=== PATIENT | female | born 1990 ===

== ENCOUNTER 2017-09-08 21:41 | Emergency (ER) | payer BC ==
--- NOTE | 2017-09-08 22:24 | PD ---
HPI Chief Complaint decr FM Date Seen: September 08, 2017 Time Seen: 22:21 Travel History International Travel<30 Days: No Contact w/Intl Traveler<30Days: No Known Affected Area: No History of Present Illness HPI Pt is a 27y/o G1 @ 39.4wks. She has PNC with Dr. Alvarenga. She presents this evening with c/o decr FM. She reports having heartburn and emesis overnight and today baby has only had 1-2 movements every hour. She has rested most of the day. Reports adequate hydration and PO intake. States she has felt movement since being here in triage. No ctx, LOF, or VB. Weeks Gestation: 39 Para: 0 : 1 History Past Medical History Medical History: Denies Significant Hx Obstetric History Obstetric History 1. current Past Surgical History Surgical History: No Previous Surgery Family History Family History: Negative Social History Alcohol Use: No Tobacco Use: No Substance Abuse: No Allergies-Medications (Allergen,Severity, Reaction): Coded Allergies: No Known Allergies (Verified Allergy, Unknown, 09/08/17) Narrative Medication PNVs Review of Systems Except as stated in HPI: all other systems reviewed are Neg Physical Exam Narrative General: well developed, well nourished, no acute distress HEENT: normocephalic atraumatic, extraocular movements intact, neck supple Abdomen: soft, gravid, nontender, nondistended Uterus: fundus term, soft Extremities: full range of motion Skin: normal coloration, no rashes, no suspicious skin lesions noted Neurologic: cranial nerves 2-12 grossly intact, normal muscle tone, normal gait Psychiatric: normal mood and affect, appropriate FHTs: 135, +accels, no decels, moderate variability, reactive [place]: quiet Cvx: deferred Data Data Vital Signs Reviewed: Yes Orders Orders Vital Signs (Adult) .ON ADMISSION (09/08/17 22:19) ^ Labor Status (09/08/17 22:19) ^ Non Stress Test (09/08/17 22:19) Ed Discharge Order (09/08/17 22:19) MDM Plan 27y/o G1 @ 39.4wks with decr . -- NST reactive -- precautions reviewed Dispo: stable for d/c home, has f/u with Dr. Alvarenga on Saturday in clinic Diagnosis Diagnosis: Primary Impression: 39 weeks gestation of Additional Impression: Decreased movement Harvey Barreto MD September 08, 2017 22:24
== END 2017-09-08 22:30 | disposition home or self-care (01) ==
LOC: HOBED 21:41
DX: O36.8130 Decreased fetal movements, third trimester, not applicable or unspecified (principal); Z3A.39 39 weeks gestation of pregnancy
CPT/HCPCS: 99282

== ENCOUNTER 2017-09-19 18:00 | Inpatient (IN) | payer BC ==
[~2017-09-19] VITALS: Ht 175.3 cm; Wt 98.0 kg
[2017-09-19] MEDS ORDERED: OXYTOCIN 30 UNITS 500ML PREMIX IV ONE (19:00)
[2017-09-19] MEDS ORDERED: LIDOCAINE HCL 1% 50 ML VIAL INFIL PRN (19:00)
[2017-09-19] MEDS ORDERED: LACTATED RINGER'S 1000 ML INJ 1,000 ML IV SCH (19:00)
[2017-09-19] MEDS ORDERED: MINERAL OIL 10 ML VIAL TOPICAL PRN (19:00)
[2017-09-19] MEDS ORDERED: DINOPROSTONE 10 MG INSERT-LEAVE FOR 12 HOURS VAGINAL ONE (19:00)
[2017-09-19] MEDS ORDERED: SODIUM CHLORIDE 0.9% FLUSH 10 ML FLUSH IV FLUSH PRN (19:00)
[2017-09-19] MEDS ORDERED: LACTATED RINGER'S 1000 ML BOLUS IV PRN (19:15)
[2017-09-19] MEDS ORDERED: CITRIC ACID-SODIUM CITRATE LIQ 30 ML UDC PO SCH (19:15)
[2017-09-19] MEDS ORDERED: NS 1000 ML IV PRN (19:15)
[2017-09-19] MEDS ORDERED: LIDOCAINE HCL 1% 50 ML VIAL I-DERMAL PRN (19:15)
[2017-09-19] MEDS ORDERED: NS 500 ML BOLUS IV PRN (19:15)
[2017-09-19 19:21] LABS: AUTOMATED NEUTROPHIL # 9.3 TH/MM3 (1.8-7.7); BASOPHIL % 0.1 % (0.0-2.0); EOSINOPHIL # 0.2 TH/MM3 (0-0.4); EOSINOPHIL % 1.4 % (0.0-4.0); HEMATOCRIT 37.5 % (35.0-46.0); HEMOGLOBIN 12.3 GM/DL (11.6-15.3); LYMPH % 16.5 % (9.0-44.0); LYMPHOCYTE # 2.1 TH/MM3 (1.0-4.8); MEAN CELL VOLUME 91.1 FL (80.0-100.0); MEAN CORPUSCULAR HGB CONC 32.9 % (32.0-36.0); MEAN PLATELET VOLUME 8.5 FL (7.0-11.0); MONO % 8.8 % (0.0-8.0); MONOCYTE # 1.1 TH/MM3 (0-0.9); NEUT % 73.2 % (16.0-70.0); PLATELET COUNT 178 TH/MM3 (150-450); RED BLOOD COUNT 4.11 MIL/MM3 (4.00-5.30); RED CELL DISTRIBUTION WIDTH 14.6 % (11.6-17.2); WHITE BLOOD COUNT 12.7 TH/MM3 (4.0-11.0)
[2017-09-19 19:23] LABS: BACTERIA, URINE RARE /hpf; BILIRUBIN, URINE NEG (NEG); BLOOD, URINE NEG (NEG); GLUCOSE,URINE NEG (NEG); KETONE, URINE 40 mg/dL (NEG); MUCUS URINE FEW /lpf (OCC); NITRITE,URINE NEG (NEG); PH, URINE 6.5 (5.0-8.5); SQUAMOUS EPITHELIAL CELL URINE 1 /hpf (0-5); URINE COLOR YELLOW (YELLW/STRAW); URINE LEUKOCYTE ESTERASE NEG (NEG)
[2017-09-19] MEDS ORDERED: PREN1TAB30 (19:45)
[2017-09-19] MEDS ORDERED: ZANT150T2 PO (19:45)
[2017-09-19] MEDS ORDERED: TUMS500C CHEW (19:45)
[2017-09-19] MEDS: LACTATED RINGER'S 1000 ML IV SCH (20:18)
[2017-09-20] MEDS ORDERED: FAMOTIDINE 20 MG TAB PO ONE (01:30)
--- NOTE | 2017-09-20 06:29 | HHI.HP ---
HPI Chief Complaint postdates induction, 41w1d on 09/19/17 Date Seen: Sep 19, 2017 Travel History International Travel<30 Days: No Contact w/Intl Traveler<30Days: No Known Affected Area: No History of Present Illness HPI 27 yo G1 with EDC 09/11/17 presents for postdates labor induction. C/o irregular contractions, no VB or LOF, good FM. Rh negative, had Rhogam at 28 wks. Pain 1/10 mild pressure pelvis. Weeks Gestation: 41 Para: 0 : 1 Miscarriage: 0 : 0 History Past Medical History Narrative Medical Rh negative Obstetric History Obstetric History G1 - current Past Surgical History Surgical History: No Previous Surgery Family History Family History: Negative Social History Alcohol Use: No Tobacco Use: No Substance Abuse: No Allergies-Medications (Allergen,Severity, Reaction): Coded Allergies: No Known Allergies (Verified Allergy, Unknown, 09/08/17) Home Meds Reported Medications Calcium Carbonate (Antacid) (Tums) 500 Mg Chew, 500 MG CHEW Y for HEARTBURN, TAB 0 Refills 09/19/17 Vit W/ Ferrous Fumara ( Vitamin 27-0.8 mg) 27 Mg Iron-800 Mcg Tab, DAILY 09/19/17 Ranitidine (Zantac) 150 Mg Tab, 150 MG PO DAILY for Reduce Stomach Acid, #30 TAB 0 Refills 09/19/17 Review of Systems General / Constitutional: Weight Gain, No: Fever, Chills, Other Eyes: No: Diploplia, Blurred Vision, Visual changes, Pain, Photophobia HENT: No: Headaches, Vertigo, Lightheadedness Cardiovascular: No: Irregular Rhythm, Chest Pain or Discomfort, Palpitations, Tachycardia, Syncope, Varicosities, Edema, Cyanosis Respiratory: No: Cough, Short of Breath, Other Gastrointestinal: No: Nausea, Vomiting, Diarrhea Genitourinary: Pelvic Pain (pressure), No: Decreased Urinary Output, Oliguria Musculoskeletal: No: Limited ROM, Weakness, Cramping, Edema, Pain Skin: No Rash, No Itching, No Dryness, No Lumps, No Change in Pigmentation, No Change in Nails, No Alopecia, No Lesions Neurologic: No: Weakness, Dizziness, Syncope, Focal Abnormalities, Coordination Problem, Headache, Slurred Speech, Seizures Psychiatric: No: Depression, Suicidal Ideations, Homicidal Ideation Endocrine: No: Heat Intolerance, Cold Intolerance, Polydipsia, Polyuria, Other Physical Exam Narrative GENERAL: Well-nourished, well-developed patient. SKIN: Warm and dry. HEAD: Normocephalic and atraumatic. EYES: No scleral icterus. No injection or drainage. ENT: No nasal drainage noted. Mucous membranes pink. Airway patent. NECK: Supple, trachea midline. No JVD. CARDIOVASCULAR: Regular rate and rhythm without murmurs, gallops, or rubs. RESPIRATORY: Breath sounds equal bilaterally. No accessory muscle use. BREASTS: deferred. ABDOMEN/GI: Abdomen soft, non-tender, bowel sounds present, no rebound, no guarding Gravid to [41] weeks size Fundal Height: [41] GENITOURINARY: see RN note on amilcar FHT's: Category:I EXTREMITIES: No cyanosis or edema. BACK: Nontender without obvious deformity. No CVA tenderness. NEUROLOGICAL: Awake and alert. Motor and sensory grossly within normal limits. Five out of 5 muscle strength in all muscle groups. Normal speech. Caprini VTE Risk Assessment Caprini VTE Risk Assessment: No/Low Risk (score <= 1) VTE Pharm Contraindication: Epidural catheter Caprini Risk Assessment Model Point Value = 1 Point Value = 2 Point Value = 3 Point Value = 5 Age 41-60 Minor surgery BMI > 25 kg/m2 Swollen legs Varicose veins or History of unexplained or recurrent spontaneous Oral contraceptives or hormone replacement Sepsis (< 1 month) Serious lung disease, including pneumonia (< 1 month) Abnormal pulmonary function Acute myocardial infarction Congestive heart failure (< 1 month) History of inflammatory bowel disease Medical patient at bed rest Age 61-74 Arthroscopic surgery Major open surgery (> 45 min) Laparoscopic surgery (> 45 min) Malignancy Confined to bed (> 72 hours) Immobilizing plaster cast Central venous access Age >= 75 History of VTE Family history of VTE Factor V Leiden Prothrombin [id number] Lupus anticoagulant Anticardiolipin antibodies Elevated serum homocysteine Heparin-induced thrombocytopenia Other congenital or acquired thrombophilia Stroke (< 1 month) Elective arthroplasty Hip, pelvis, or leg fracture Acute spinal cord injury (< 1 month) Prophylaxis Regimen Total Risk Factor Score Risk Level Prophylaxis Regimen 0-1 Low Early ambulation 2 Moderate Order ONE of the following: *Sequential Compression Device (SCD) *Heparin 5000 units SQ BID 3-4 Higher Order ONE of the following medications: *Heparin 5000 units SQ TID *Enoxaparin/Lovenox 40 mg SQ daily (WT < 150 kg, CrCl > 30 mL/min) *Enoxaparin/Lovenox 30 mg SQ daily (WT < 150 kg, CrCl > 10-29 mL/min) *Enoxaparin/Lovenox 30 mg SQ BID (WT < 150 kg, CrCl > 30 mL/min) AND/OR *Sequential Compression Device (SCD) 5 or more Highest Order ONE of the following medications: *Heparin 5000 units SQ TID (Preferred with Epidurals) *Enoxaparin/Lovenox 40 mg SQ daily (WT < 150 kg, CrCl > 30 mL/min) *Enoxaparin/Lovenox 30 mg SQ daily (WT < 150 kg, CrCl > 10-29 mL/min) *Enoxaparin/Lovenox 30 mg SQ BID (WT < 150 kg, CrCl > 30 mL/min) AND *Sequential Compression Device (SCD) Data Data Vital Signs Reviewed: Yes Orders Orders Physician Name Changes (09/19/17 ) Admit To Inpatient (09/19/17 ) Code Status (09/19/17 18:43) Vital Signs (Adult) .Per protocol (09/19/17 18:43) Heart (09/19/17 18:43) Amnioinfusion (09/19/17 18:43) Urinary Catheter Management .ONCE (09/19/17 18:43) Complete Blood Count With Diff (09/19/17 18:43) Hold Clot (09/19/17 18:43) Abo/Rh Blood Type (09/19/17 18:43) Urinalysis - C+S If Indicated (09/19/17 18:43) Ob/Psych Drug Screen, Urine (09/19/17 18:43) Resp Oxygen Non Rebreathe Mask (09/19/17 ) ^ Epidural / Intrathecal Infus (09/19/17 18:43) Admit To Inpatient (09/19/17 ) ^ Labor Induction (09/19/17 18:45) ^ Vaginal Insert (09/19/17 18:45) ^ Vaginal Lavage (09/19/17 18:45) Heart (09/19/17 18:45) Dinoprostone Vag Insert (Cervidil Vag In (09/19/17 19:00) Lactated Ringer's 1000 Ml Inj (Lr 1000 M (09/19/17 19:00) Sodium Chloride 0.9% Flush (Ns Flush) (09/19/17 19:00) Lactated Ringer's 1000 Ml Inj (Lr 1000 M (09/19/17 19:15) Lactated Ringer's 1000 Ml Inj (Lr 1000 M (09/19/17 19:15) Sodium Chlor 0.9% 1000 Ml Inj (Ns 1000 M (09/19/17 19:15) Lidocaine 1% Inj (50 Ml) (Xylocaine 1% I (09/19/17 19:15) Citric Acid-Sodium Citrate Liq (Bicitra (09/19/17 19:15) Fentanyl Inj (Fentanyl Inj) (09/19/17 19:00) Fentanyl Inj (Fentanyl Inj) (09/19/17 19:00) Sodium Chlorid 0.9% 500 Ml Inj (Ns 500 M (09/19/17 19:15) Oxytocin 30 Units-500ml Premix (Pitocin (09/19/17 19:00) Lidocaine 1% Inj (50 Ml) (Xylocaine 1% I (09/19/17 19:00) Light Mineral Oil (Muri-Lube Oil) (09/19/17 19:00) Diet Regular Basic (09/19/17 Dinner) Admit To Inpatient (09/19/17 ) Vital Signs (Adult) .Per protocol (09/19/17 20:02) Activity Oob Ad Nayely (09/19/17 20:02) Heart (09/19/17 20:02) Amnioinfusion (09/19/17 20:02) Urinary Catheter Management .ONCE (09/19/17 20:02) Resp Oxygen Non Rebreathe Mask (09/19/17 ) ^ Epidural / Intrathecal Infus (09/19/17 20:02) Famotidine (Pepcid) (09/20/17 01:30) Group B Strep: Negative Labs Laboratory Tests Test 09/19/17 18:20 White Blood Count 12.7 Red Blood Count 4.11 Hemoglobin 12.3 Hematocrit 37.5 Mean Corpuscular Volume 91.1 Mean Corpuscular Hemoglobin 30.0 Mean Corpuscular Hemoglobin Concent 32.9 Red Cell Distribution Width 14.6 Platelet Count 178 Mean Platelet Volume 8.5 Neutrophils (%) (Auto) 73.2 Lymphocytes (%) (Auto) 16.5 Monocytes (%) (Auto) 8.8 Eosinophils (%) (Auto) 1.4 Basophils (%) (Auto) 0.1 Neutrophils # (Auto) 9.3 Lymphocytes # (Auto) 2.1 Monocytes # (Auto) 1.1 Eosinophils # (Auto) 0.2 Basophils # (Auto) 0.0 CBC Comment DIFF FINAL Differential Comment Urine Color YELLOW Urine Turbidity CLEAR Urine pH 6.5 Urine Specific [place] 1.019 Urine Protein TRACE Urine Glucose (UA) NEG Urine Ketones 40 Urine Occult Blood NEG Urine Nitrite NEG Urine Bilirubin NEG Urine Urobilinogen LESS THAN 2.0 Urine Leukocyte Esterase NEG Urine RBC LESS THAN 1 Urine WBC LESS THAN 1 Urine Squamous Epithelial Cells 1 Urine Bacteria RARE Urine Mucus FEW Microscopic Urinalysis Comment CULT NOT INDICATED Urine Opiates Screen NEG Urine Barbiturates Screen NEG Urine Amphetamines Screen NEG Urine Benzodiazepines Screen NEG Urine Cocaine Screen NEG Urine Cannabinoids Screen NEG Assessment/Plan Problem List: (1) Post term at 41 weeks gestation ICD Codes: O48.0 - Post-term ; Z3A.41 - 41 weeks gestation of Status: Acute Assessment and Plan 27 yo G1 with EDC 09/11/17 admit on 09/19/17 at 41w1d for labor induction, postdates 1) IOL: for cervidil on admission if available; then re-evaluate in AM for add' tl measures as indicated; pt aware of risks including risks of distress/failure and possibility of need for ; consents to induction 2) GBS neg 3) status: vertex, male, EFW >8.5Hailey Catherine MD Sep 20, 2017 06:29
--- NOTE | 2017-09-20 08:02 | PD.LABORPN ---
Subjective Subjective mild cramping during night vaginal discomfort from cervidil with mild bloody show Objective Objective 3/50%/-3 posterior strip category one pelvis clinically adequate Weeks Gestation: 41 Gest Age Assessed Date: Sep 20, 2017 Gest Age Assessed Time: 08:01 Pt started active labor?: No Medical induction of labor?: No Artificial rupture of membrane: No Assessment/Plan Problem List: (1) Post term at 41 weeks gestation ICD Codes: O48.0 - Post-term ; Z3A.41 - 41 weeks gestation of Status: Acute Assessment and Plan shower, breakfast walk and birthing ball by 10 if no spontaneous labor will start pitocin anticipate Estefany Hardy MD Sep 20, 2017 08:02
[2017-09-20] MEDS ORDERED: OXYTOCIN 30 UNITS-500ML PREMIX 500 ML IV PRN (09:00)
[2017-09-20] MEDS: LACTATED RINGER'S 1000 ML IV SCH ×3 (11:07→19:40)
--- NOTE | 2017-09-20 17:04 | PD.LABORPN ---
Subjective Subjective getting uncomfortable on birthing ball Objective Objective 405/80-%/-2/posterior and deviated to her left EFW 8 pounds strip category one pelvis unproven but clinically adequate Weeks Gestation: 41 Gest Age Assessed Date: Sep 20, 2017 Gest Age Assessed Time: 17:04 Pt started active labor?: No Medical induction of labor?: Yes Medical induction start date: Sep 20, 2017 Medical induction start time: 17:04 Artificial rupture of membrane: Yes Artificial ROM date: Sep 20, 2017 Artifical ROM time: 17:04 Assessment/Plan Problem List: (1) Post term at 41 weeks gestation ICD Codes: O48.0 - Post-term ; Z3A.41 - 41 weeks gestation of Status: Acute Assessment and Plan epidural as needed anticipate Estefany Dan MD Sep 20, 2017 17:04
[2017-09-20] MEDS ORDERED: LIDOCAINE 1.5%/EPINEPHrine 1:200,000 PF 5 ML AMP ONE (19:09)
[2017-09-20] MEDS ORDERED: fentaNYL 2MCG-BUPIV 0.125% INJ 150 ML EPIDURAL ONE (19:11)
[2017-09-20] MEDS ORDERED: fentaNYL 2MCG-BUPIV 0.125% 150 ML EPIDURAL PRN (19:45)
[2017-09-20] MEDS ORDERED: ePHEDrine/NS 25 MG/5 ML SYRINGE IV PUSH PRN (19:45)
[2017-09-20] MEDS ORDERED: DO NOT ADMINISTER ANTICOAGULANTS PRN (19:45)
[2017-09-20] MEDS ORDERED: NO SYSTEM NARCOTICS PRN (19:45)
[2017-09-21] MEDS ORDERED: LIDOCAINE HCL 1% PF 30 ML VIAL ONE (01:27)
[2017-09-21] MEDS: LACTATED RINGER'S 1000 ML IV SCH ×2 (03:15→11:15)
--- NOTE | 2017-09-21 03:35 | PD.OB.DELI ---
Weeks gestation: 41 Gest age assessed date: Sep 20, 2017 Gest age assessed time: 17:04 Pt started active labor?: No Medical induction of labor?: Yes Medical induction start date: Sep 20, 2017 Medical induction start time: 17:04 Artificial rupture of membrane: Yes Artificial ROM date: Sep 20, 2017 Artifical ROM time: 17:04 Anesthesia: Epidural Episiotomy: None Vaginal Delivery: Normal Presentation: Occiput anterior Nuchal Cord: None : Male Delivery date: Sep 21, 2017 Delivery time: 03:34 One Minute : 8 Five Minute : 9 Weight: 7 14 Placenta: Spontaneous delivery Laceration: 2 deg Repair: Chromic interrupted Estimated blood loss: 200 Estefany Hardy MD Sep 21, 2017 03:35
[2017-09-21] MEDS ORDERED: ALUMINUM/MAGNESIUM/SIMETH 30 ML CUP PO PRN (03:45)
[2017-09-21] MEDS ORDERED: ZOLPIDEM TARTRATE 5 MG TAB PO PRN (03:45)
[2017-09-21] MEDS ORDERED: ONDANSETRON ODT 4 MG TAB PO PRN (03:45)
[2017-09-21] MEDS ORDERED: SODIUM CHLORIDE 0.9% FLUSH 10 ML FLUSH IV FLUSH PRN (03:45)
[2017-09-21] MEDS ORDERED: OXYTOCIN 30 UNITS-500ML PREMIX 500 ML IV SCH (03:45)
[2017-09-21] MEDS ORDERED: WITCH HAZEL 50%/GLYCERIN 12.5% 40 PAD JAR TOPICAL PRN (03:45)
[2017-09-21] MEDS: IBUPROFEN 800 MG TAB PO PRN ×3 (05:15→21:12)
[2017-09-21] MEDS: DOCUSATE SODIUM 50 MG/SENNA 8.6 MG TAB PO PRN ×2 (08:49→21:12)
[2017-09-21] MEDS: BENZOCAINE 20% TOPICAL SPRAY 60 ML CAN TOPICAL PRN (08:49)
[2017-09-21] MEDS: SODIUM CHLORIDE 0.9% FLUSH 10 ML FLUSH IV FLUSH SCH (09:00)
--- NOTE | 2017-09-21 09:19 | HHI.OB ---
Subjective Post Day: 0 Remarks resting planning to nurse no pain issues Objective Objective Remarks GENERAL: Well-nourished, well-developed patient. CARDIOVASCULAR: Regular rate and rhythm without murmurs, gallops, or rubs. RESPIRATORY: Breath sounds equal bilaterally. No accessory muscle use. ABDOMEN/GI: Abdomen soft, non-tender. Fundus: Firm, non-tender at umbilicus. GENITOURINARY: Light to moderate bleeding. EXTREMITIES: No cyanosis or edema, non-tender, without signs of DVT. Medications and IVs Current Medications Medications (Trade) Dose Ordered Sig/Bárbara Route Start Time Stop Time Status Last Admin (NS Flush) 2 ml UNSCH PRN IV FLUSH 09/19/17 19:00 Lactated Ringer's 1,000 ml @ 125 mls/hr Q8H IV 09/19/17 19:15 09/20/17 19:40 Lactated Ringer's 1,000 ml @ 3,000 mls/hr BOLUS PRN IV 09/19/17 19:15 Sodium Chloride 500 ml @ 1,000 mls/hr BOLUS PRN IV 09/19/17 19:15 Sodium Chloride 1,000 ml @ 100 mls/hr Q10H PRN IV 09/19/17 19:15 (Bicitra Liq) 30 ml JOURNAL BOX INSPECTOR PO 09/19/17 19:15 09/22/17 19:14 (fentaNYL INJ) 50 mcg Q1H PRN IV PUSH 09/19/17 19:00 09/20/17 18:06 (fentaNYL INJ) 100 mcg Q1H PRN IV PUSH 09/19/17 19:00 (Muri-Lube Oil) 10 ml UNSCH PRN TOPICAL 09/19/17 19:00 Oxytocin 500 ml @ 0 mls/hr TITRATE PRN IV 09/20/17 09:00 09/20/17 11:06 ([facility] Nursing Information) No systemic narcotics to be given except... UNSCH PRN .XX 09/20/17 19:45 09/21/17 19:44 ([facility] Nursing Information) DO NOT ADMINISTER ANY ANTICOAGUL... UNSCH PRN .XX 09/20/17 19:45 09/21/17 19:44 Fentanyl/ Bupivacaine/ Sodium Chlor 150 ml @ 0 mls/hr TITRATE PRN EPIDURAL 6/8/18 19:45 09/20/17 20:13 (ePHEDrine/NS 25 MG/5 ML SYR) 10 mg UNSCH PRN IV PUSH 09/20/17 19:45 09/21/17 19:44 (NS Flush) 2 ml BID IV FLUSH 09/21/17 09:00 (NS Flush) 2 ml UNSCH PRN IV FLUSH 09/21/17 03:45 (Tylenol) 650 mg Q4H PRN PO 09/21/17 03:45 (Motrin) 800 mg Q8H PRN PO 09/21/17 03:45 09/21/17 05:15 (Americaine 20% Top Spr) 1 spray Q4H PRN TOPICAL 09/21/17 03:45 09/21/17 08:49 (Tucks Pads) 1 applic QID PRN TOPICAL 09/21/17 03:45 09/21/17 08:49 (Mahnaz-Colace) 2 tab Q12H PRN PO 09/21/17 03:45 09/21/17 08:49 (Ambien) 5 mg HS PRN PO 09/21/17 03:45 (M-M-R Ii Inj) 0.5 ml ONCE ONCE SQ 09/21/17 16:00 09/21/17 16:01 (Boostrix Inj) 0.5 ml ONCE ONCE IM 09/21/17 16:00 09/21/17 16:01 (Mag-Al Plus Susp Liq) 15 ml Q8H PRN PO 09/21/17 03:45 (Zofran Odt) 4 mg Q6H PRN PO 09/21/17 03:45 Assessment/Plan Problem List: (1) Post term at 41 weeks gestation ICD Codes: O48.0 - Post-term ; Z3A.41 - 41 weeks gestation of Status: Acute Assessment and Plan 27 yo G1 with EDC 09/11/17 admit on 09/19/17 at 41w1d for labor induction, postdates 1) IOL: for cervidil on admission if available; then re-evaluate in AM for add' tl measures as indicated; pt aware of risks including risks of distress/failure and possibility of need for ; consents to induction 2) GBS neg 3) status: vertex, male, EFW >8.5# 09/21/17 PPD 0 s/p of 7 14 son small repair anticipate discharge saturday for circumcision Estefany Hardy MD Sep 21, 2017 09:19
[2017-09-21] MEDS ORDERED: MEASLES, MUMPS, RUBELLA VACCINE 0.5 ML VIAL SQ ONE (16:00)
[2017-09-21] MEDS ORDERED: DIPHTH/TETANUS/ACEL PERTUSSIS (BOOSTER) 0.5 ML VIAL/PFS IM ONE (16:00)
[2017-09-21 20:11] VITALS: BP 121/76; PULSE 98; RESP 18; TEMP 98.3
[2017-09-21] MEDS: ACETAMINOPHEN 325 MG TAB PO PRN (21:12)
[2017-09-21 21:40] VITALS: PULSE 100; RESP 18
[2017-09-21 21:44] VITALS: PULSE 95; RESP 18
[2017-09-22] MEDS: ACETAMINOPHEN 325 MG TAB PO PRN ×5 (04:07→23:01)
[2017-09-22] MEDS: IBUPROFEN 800 MG TAB PO PRN ×2 (08:24→16:33)
[2017-09-22] MEDS: DOCUSATE SODIUM 50 MG/SENNA 8.6 MG TAB PO PRN ×2 (08:24→20:42)
[2017-09-22] MEDS: SODIUM CHLORIDE 0.9% FLUSH 10 ML FLUSH IV FLUSH SCH (09:00)
--- NOTE | 2017-09-22 12:29 | HHI.OB ---
Subjective Post Day: 1 Objective Vitals/I&O Vital Signs Date Time Temp Pulse Resp B/P (MAP) Pulse Ox O2 Delivery O2 Flow Rate FiO2 09/21/17 21:44 95 18 09/21/17 21:40 100 18 09/21/17 20:11 98.3 98 18 121/76 (91) Objective Remarks GENERAL: Well-nourished, well-developed patient. CARDIOVASCULAR: Regular rate and rhythm without murmurs, gallops, or rubs. RESPIRATORY: Breath sounds equal bilaterally. No accessory muscle use. ABDOMEN/GI: Abdomen soft, non-tender. Fundus: Firm, non-tender at umbilicus. GENITOURINARY: Light to moderate bleeding. EXTREMITIES: No cyanosis or edema, non-tender, without signs of DVT. Medications and IVs Current Medications Medications (Trade) Dose Ordered Sig/Bárbara Route Start Time Stop Time Status Last Admin (NS Flush) 2 ml UNSCH PRN IV FLUSH 09/19/17 19:00 Lactated Ringer's 1,000 ml @ 125 mls/hr Q8H IV 09/19/17 19:15 09/20/17 19:40 Lactated Ringer's 1,000 ml @ 3,000 mls/hr BOLUS PRN IV 09/19/17 19:15 Sodium Chloride 500 ml @ 1,000 mls/hr BOLUS PRN IV 09/19/17 19:15 Sodium Chloride 1,000 ml @ 100 mls/hr Q10H PRN IV 09/19/17 19:15 (Bicitra Liq) 30 ml SUPERVISOR PLATE PASTING PO 09/19/17 19:15 09/22/17 19:14 (fentaNYL INJ) 50 mcg Q1H PRN IV PUSH 09/19/17 19:00 09/20/17 18:06 (fentaNYL INJ) 100 mcg Q1H PRN IV PUSH 09/19/17 19:00 (Muri-Lube Oil) 10 ml UNSCH PRN TOPICAL 09/19/17 19:00 Oxytocin 500 ml @ 0 mls/hr TITRATE PRN IV 09/20/17 09:00 09/20/17 11:06 Fentanyl/ Bupivacaine/ Sodium Chlor 150 ml @ 0 mls/hr TITRATE PRN EPIDURAL 09/20/17 19:45 09/20/17 20:13 (NS Flush) 2 ml BID IV FLUSH 09/21/17 09:00 (NS Flush) 2 ml UNSCH PRN IV FLUSH 09/21/17 03:45 (Tylenol) 650 mg Q4H PRN PO 09/21/17 03:45 09/22/17 08:24 (Motrin) 800 mg Q8H PRN PO 09/21/17 03:45 09/22/17 08:24 (Americaine 20% Top Spr) 1 spray Q4H PRN TOPICAL 09/21/17 03:45 09/21/17 08:49 (Tucks Pads) 1 applic QID PRN TOPICAL 09/21/17 03:45 09/21/17 08:49 (Mahnaz-Colace) 2 tab Q12H PRN PO 09/21/17 03:45 09/22/17 08:24 (Ambien) 5 mg HS PRN PO 09/21/17 03:45 (Mag-Al Plus Susp Liq) 15 ml Q8H PRN PO 09/21/17 03:45 (Zofran Odt) 4 mg Q6H PRN PO 09/21/17 03:45 Assessment/Plan Problem List: (1) Post term at 41 weeks gestation ICD Codes: O48.0 - Post-term ; Z3A.41 - 41 weeks gestation of Status: Acute Assessment and Plan 27 yo G1 with EDC 09/11/17 admit on 09/19/17 at 41w1d for labor induction, postdates 1) IOL: for cervidil on admission if available; then re-evaluate in AM for add' tl measures as indicated; pt aware of risks including risks of distress/failure and possibility of need for ; consents to induction 2) GBS neg 3) status: vertex, male, EFW >8.5# 09/21/17 PPD 0 s/p of 7 14 son small repair anticipate discharge saturday for circumcision PPD 1 Doing well no issues home if baby discharged Estefany Hardy MD Sep 22, 2017 12:29
[2017-09-22] MEDS ORDERED: IBUP1TAB7 PO (12:30)
--- NOTE | 2017-09-22 12:31 | HHI.DCPOC ---
Discharge Care Plan Report Symptoms to Your Doctor -Temperature above 100.5 degrees -Redness, of incision or excessive or foul smelling drainage -Unusual pain or calf pain -Increased vaginal bleeding -Painful or difficulty urinating -Feelings of extreme sadness or anxiety after 2 weeks Goals to Promote Your Health * To prevent worsening of your condition and complications * To maintain your health at the optimal level Directions to Meet Your Goals Take your medications as prescribed Follow your dietary instruction Follow activity as directed Ensure plenty of rest for recovery Drink fluids for hydration Keep your appointments as scheduled Take your immunizations and boosters as scheduled If your symptoms worsen call your PCP, if no PCP go to Urgent Care Center or Emergency Room Smoking is Dangerous to Your Health. Avoid second hand smoke Call the 24-hour crisis hotline for domestic abuse at Estefany Hardy MD Sep 22, 2017 12:31
[2017-09-23] MEDS: IBUPROFEN 800 MG TAB PO PRN ×2 (01:56→10:30)
[2017-09-23] MEDS: SODIUM CHLORIDE 0.9% FLUSH 10 ML FLUSH IV FLUSH SCH (07:29)
[2017-09-23] MEDS: BENZOCAINE 20% TOPICAL SPRAY 60 ML CAN TOPICAL PRN (07:41)
[2017-09-23] MEDS: DOCUSATE SODIUM 50 MG/SENNA 8.6 MG TAB PO PRN (08:29)
[2017-09-23] MEDS: ACETAMINOPHEN 325 MG TAB PO PRN (08:29)
--- NOTE | 2017-09-23 09:51 | HHI.OB ---
Subjective Post Day: 2 Remarks doing well, , no complaints Objective Objective Remarks GENERAL: Well-nourished, well-developed patient. CARDIOVASCULAR: Regular rate and rhythm without murmurs, gallops, or rubs. RESPIRATORY: Breath sounds equal bilaterally. No accessory muscle use. ABDOMEN/GI: Abdomen soft, non-tender. Fundus: Firm, non-tender at umbilicus. GENITOURINARY: Light bleeding. EXTREMITIES: No cyanosis or edema, non-tender, without signs of DVT. Medications and IVs Current Medications Medications (Trade) Dose Ordered Sig/Bárbara Route Start Time Stop Time Status Last Admin (NS Flush) 2 ml UNSCH PRN IV FLUSH 09/19/17 19:00 Lactated Ringer's 1,000 ml @ 125 mls/hr Q8H IV 09/19/17 19:15 09/20/17 19:40 Lactated Ringer's 1,000 ml @ 3,000 mls/hr BOLUS PRN IV 09/19/17 19:15 Sodium Chloride 500 ml @ 1,000 mls/hr BOLUS PRN IV 09/19/17 19:15 Sodium Chloride 1,000 ml @ 100 mls/hr Q10H PRN IV 09/19/17 19:15 (fentaNYL INJ) 50 mcg Q1H PRN IV PUSH 09/19/17 19:00 09/20/17 18:06 (fentaNYL INJ) 100 mcg Q1H PRN IV PUSH 09/19/17 19:00 (Muri-Lube Oil) 10 ml UNSCH PRN TOPICAL 09/19/17 19:00 Oxytocin 500 ml @ 0 mls/hr TITRATE PRN IV 09/20/17 09:00 09/20/17 11:06 Fentanyl/ Bupivacaine/ Sodium Chlor 150 ml @ 0 mls/hr TITRATE PRN EPIDURAL 09/20/17 19:45 09/20/17 20:13 (NS Flush) 2 ml BID IV FLUSH 09/21/17 09:00 (NS Flush) 2 ml UNSCH PRN IV FLUSH 09/21/17 03:45 (Tylenol) 650 mg Q4H PRN PO 09/21/17 03:45 09/23/17 08:29 (Motrin) 800 mg Q8H PRN PO 09/21/17 03:45 09/23/17 01:56 (Americaine 20% Top Spr) 1 spray Q4H PRN TOPICAL 09/21/17 03:45 09/23/17 07:41 (Tucks Pads) 1 applic QID PRN TOPICAL 09/21/17 03:45 09/21/17 08:49 (Mahnaz-Colace) 2 tab Q12H PRN PO 09/21/17 03:45 09/23/17 08:29 (Ambien) 5 mg HS PRN PO 09/21/17 03:45 (Mag-Al Plus Susp Liq) 15 ml Q8H PRN PO 09/21/17 03:45 (Zofran Odt) 4 mg Q6H PRN PO 09/21/17 03:45 Assessment/Plan Problem List: (1) (spontaneous vaginal delivery) ICD Codes: O80 - Encounter for full-term uncomplicated delivery Status: Acute Assessment and Plan PPD#2 s/p meeting all criteria, d/c to home today Discharge Planning routine Hailey Alvarenga MD Sep 23, 2017 09:51
[2017-09-24] MEDS ORDERED: AMMONIA AROMATIC INHALANT 0.33 ML ONE (17:25)
== END 2017-09-23 12:12 | disposition home or self-care (01) | DRG 775 ==
LOC: H2EB 18:00 → H1EA 09-21 05:25
PROVIDERS: ADMIT Obstetrics & Gynecology; ATTEND Obstetrics & Gynecology
PROC: 3E0P7VZ Introduction of Hormone into Female Reproductive, Via Natural or Artificial Opening (ICD-10-PCS; 2017-09-20)
PROC: 3E033VJ Introduction of Other Hormone into Peripheral Vein, Percutaneous Approach (ICD-10-PCS; 2017-09-20)
PROC: 10907ZC Drainage of Amniotic Fluid, Therapeutic from Products of Conception, Via Natural or Artificial Opening (ICD-10-PCS; 2017-09-20)
PROC: 0U7C7ZZ Dilation of Cervix, Via Natural or Artificial Opening (ICD-10-PCS; 2017-09-20)
PROC: 10E0XZZ Delivery of Products of Conception, External Approach (ICD-10-PCS; principal; 2017-09-21)
PROC: 0KQM0ZZ Repair Perineum Muscle, Open Approach (ICD-10-PCS; 2017-09-21)
DX: O48.0 Post-term pregnancy (principal); O70.1 Second degree perineal laceration during delivery; Z37.0 Single live birth; Z3A.41 41 weeks gestation of pregnancy; Z23 Encounter for immunization
CPT/HCPCS: 59025; 76815; 80307; 81001; 85025; 85461; 86850; 86900; 86901; 90384; J2590; J2790; J3010; J7120